=== PATIENT | male | born 1965 | race Caucasian/White ===

== ENCOUNTER 2023-07-16 10:53 | Outpatient (REF) | payer OTHER, SELFPAY ==
[2023-07-16 15:18] LABS: SARS-CoV-2 Ag NEGATIVE (NEGATIVE)
[2023-07-16 15:23] LABS: SARS-CoV-2 NAA NOT DETECTED (NOT DETECTE)
== END 2023-07-16 10:54 | disposition home or self-care (01) ==
LOC: LAB 10:53
PROVIDERS: PCP Nurse Practitioner Family; Visit Provider Nurse Practitioner Family
DX: J06.9 Acute upper respiratory infection, unspecified (principal)
CPT/HCPCS: 87635; 87811; U0003

== ENCOUNTER 2023-12-03 09:38 | Outpatient (OUT) | payer OTHER, SELFPAY ==
[2023-12-03 10:17] LABS: Basophils Absolute Auto 0.1 10^3/uL (0.0-0.1); Basophils Percent Auto 1.3 % (0.2-2.0); Eosinophils Absolute Auto 0.4 10^3/uL (0.0-0.7); Eosinophils Percent Auto 5.7 % (0.9-7.0); Hematocrit 41.7 % (42.0-54.0); Hemoglobin 13.2 g/dL (14.0-18.0); Immature Granulocytes Abs Auto 0.01 10^3/uL (0.00-0.03); Immature Granulocytes Pct Auto 0.2 % (0.0-0.5); Lymphocytes Absolute Auto 1.5 10^3/uL (1.2-3.8); Lymphocytes Percent Auto 24.4 % (20.5-60.0); Mean Corpuscular HGB Conc 31.7 g/dL (29.9-35.2); Mean Corpuscular Hemoglobin 30.4 pg (25.9-34.0); Mean Corpuscular Volume 96.1 fL (80.0-94.0); Mean Platelet Volume 10.4 fL (9.5-13.5); Monocytes Absolute Auto 0.7 10^3/uL (0.3-0.8); Monocytes Percent Auto 11.1 % (1.7-12.0); Neutrophils Absolute Auto 3.5 10^3/uL (1.4-6.5); Neutrophils Percent Auto 57.3 % (43.0-75.0); Platelet Count 272 10^3/uL (150-450); Red Blood Count 4.34 10^6/uL (4.70-6.10); Red Cell Distribution Width 12.5 % (11.0-15.0); White Blood Count 6.1 10^3/uL (4.0-11.0)
[2023-12-03 10:38] LABS: Estimated Average Glucose 126 mg/dL
[2023-12-03 10:59] LABS: Alanine Aminotransferase 40 U/L (16-63); Albumin Level 3.9 g/dL (3.4-5.0); Alkaline Phosphatase 63 U/L (46-116); Anion Gap 10.7; Aspartate Amino Transferase 20 U/L (15-37); Bilirubin Total 0.4 mg/dL (0.2-1.0); Carbon Dioxide 32.4 mmol/L (21.0-32.0); Chloride 104 mmol/L (98-107); Chol HDL Ratio 3.7; Cholesterol 170 mg/dL (<=200); Estimated GFR (African America >60 (>=60); Estimated GFR (Non-African Ame >60 (>=60); Free T3 3.14 pg/mL (2.18-3.98); Globulin 3.9 g/dL; Glucose 102 mg/dL (74-106); HDL Cholesterol 46 mg/dL (40-60); Potassium 4.1 mmol/L (3.5-5.1); Sodium 143 mmol/L (136-145); Total Protein 7.8 g/dL (6.4-8.2); Triglycerides 153 mg/dL (<=150); VLDL CHOLESTEROL 30.6 mg/dL
== END 2023-12-03 09:39 | disposition home or self-care (01) ==
LOC: LAB 09:41
PROVIDERS: PCP Nurse Practitioner Family; Visit Provider Family Medicine
DX: Z00.00 Encounter for general adult medical examination without abnormal findings (principal)
CPT/HCPCS: 36415; 80053; 80061; 83036; 84436; 84443; 84481; 85025